=== PATIENT | female | born 1960 | race Caucasian/White ===

== ENCOUNTER 2018-01-01 12:21 | Emergency (ER) | payer MEDICAID ==
[~2018-01-01] VITALS: Ht 170.1 cm; Wt 90.7 kg
[~2018-01-01 12:21] MED LIST: AMOXICILLIN500 MG PO; ATARAX25 MG PO; NKHM PO; PREDNISONE20 MG PO; ULTRAM50 MG PO
[2018-01-01 14:05] LABS: BASO % 0.6 % (0.0-1.0); EOS % 0.7 % (1.0-4.0); HEMATOCRIT 42.4 % (37.0-47.0); HEMOGLOBIN 14.8 g/dl (12.0-16.0); LYMPH # 1.4 10*3/uL (1.3-4.4); LYMPH % 26.5 % (27.0-41.0); MEAN CELL VOLUME 90.8 fl (81.0-99.0); MEAN CORPUSCULAR HGB 31.7 pg (27.0-31.0); MEAN CORPUSCULAR HGB CONC 34.9 g/dl (33.0-37.0); MEAN PLATELET VOLUME 10.4 fl (9.6-12.3); MONO # 0.2 10*3/uL (0.1-1.0); MONO % 4.2 % (3.0-9.0); NEUT # 3.7 10*3/uL (2.3-7.9); NEUT % 67.6 % (47.0-73.0); PLATELET COUNT AUTOMATED 117 10*3/uL (130-400); RED BLOOD COUNT 4.67 10*6/uL (4.10-5.10); RED CELL DISTRI WIDTH 12.3 % (0-14.5); WHITE BLOOD COUNT 5.4 10*3/uL (4.8-10.8)
[2018-01-01 14:17] LABS: INTERNATIONAL NORM RATIO 0.9 (2.0-3.5)
[2018-01-01 14:27] LABS: ALBUMIN 3.8 gm/dl (3.1-4.5); ALKALINE PHOSPHATASE 110 U/L (45-117); BUN 13 mg/dl (7-24); CHLORIDE 105 mmol/L (98-107); CREATININE 1.17 mg/dL (0.55-1.02); LIPASE 136 U/L (73-393); POTASSIUM 3.6 mmol/L (3.5-5.1); SGOT/AST 21 IU/L (3-35); SGPT/ALT 32 U/L (12-78); SODIUM 139 mmol/L (136-145); TOTAL PROTEIN 8.5 gm/dL (6.4-8.2)
[2018-01-01 15:30] VITALS: BP 110/75
== END 2018-01-01 16:10 | disposition home or self-care (01) ==
LOC: ED 12:21
PROVIDERS: Emergency Medicine
DX: R10.30 Lower abdominal pain, unspecified (principal); R19.7 Diarrhea, unspecified; Z79.899 Other long term (current) drug therapy

== ENCOUNTER → 2018-09-02 | Outpatient (CLI) | payer MEDICARE, MEDICAID ==
[~2018-09-02] MED LIST changes: +OLANZAPINE5 MG PO; +OMEPRAZOLE40 MG PO; +OXCARBAZEPINE300 M1 PO
== END | disposition home or self-care (01) ==
LOC: MAMMO 06:48
DX: Z12.31 Encounter for screening mammogram for malignant neoplasm of breast (principal); R92.8 Other abnormal and inconclusive findings on diagnostic imaging of breast

== ENCOUNTER 2018-12-03 07:14 | Emergency (ER) | payer MEDICARE, MEDICAID ==
[~2018-12-03] VITALS: Ht 167.6 cm; Wt 93.4 kg
--- NOTE | ~2018-12-03 | EKG ---
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
[2018-12-03 08:03] LABS: EOS # 0.1 10*3/uL (0.0-0.4); HEMATOCRIT 45.2 % (37.0-47.0); HEMOGLOBIN 15.1 g/dl (12.0-16.0); LYMPH # 1.5 10*3/uL (1.3-4.4); LYMPH % 17.7 % (27.0-41.0); MEAN CELL VOLUME 91.5 fl (81.0-99.0); MEAN CORPUSCULAR HGB 30.6 pg (27.0-31.0); MEAN CORPUSCULAR HGB CONC 33.4 g/dl (33.0-37.0); MEAN PLATELET VOLUME 10.2 fl (9.6-12.3); MONO # 0.4 10*3/uL (0.1-1.0); NEUT # 6.4 10*3/uL (2.3-7.9); NEUT % 75.8 % (47.0-73.0); PLATELET COUNT AUTOMATED 101 10*3/uL (130-400); RED BLOOD COUNT 4.94 10*6/uL (4.10-5.10); RED CELL DISTRI WIDTH 12.4 % (0-14.5); WHITE BLOOD COUNT 8.4 10*3/uL (4.8-10.8)
[2018-12-03 08:21] LABS: ALBUMIN 3.5 gm/dl (3.1-4.5); ALKALINE PHOSPHATASE 163 U/L (45-117); BUN 12 mg/dl (7-24); CHLORIDE 102 mmol/L (98-107); POTASSIUM 3.6 mmol/L (3.5-5.1); SGOT/AST 19 IU/L (3-35); SGPT/ALT 34 U/L (12-78); SODIUM 136 mmol/L (136-145); TOTAL PROTEIN 8.2 gm/dL (6.4-8.2)
[2018-12-03 08:25] LABS: TROPONIN I < 0.015 ng/ml (<0.045)
[2018-12-03 08:36] VITALS: BP 139/84
== END 2018-12-03 08:42 | disposition home or self-care (01) ==
LOC: ED 07:14
PROVIDERS: Emergency Medicine
DX: R41.82 Altered mental status, unspecified (principal); R55 Syncope and collapse; R53.83 Other fatigue; R68.2 Dry mouth, unspecified; Z79.899 Other long term (current) drug therapy

== ENCOUNTER → 2019-02-17 | Outpatient (CLI) | payer MEDICARE, MEDICAID | END | disposition home or self-care (01) | LOC: US 11:10 | DX: R60.0 Localized edema (principal) ==

== ENCOUNTER → 2019-07-16 | Outpatient (CLI) | payer MEDICARE, OTHER | END | disposition home or self-care (01) | LOC: RAD 09:40 | DX: R04.2 Hemoptysis (principal); E11.9 Type 2 diabetes mellitus without complications ==

== ENCOUNTER → 2020-11-29 | Outpatient (CLI) | payer MEDICARE, OTHER | END | disposition home or self-care (01) | LOC: CT 12:44 | PROVIDERS: ATTEND Family Medicine | DX: G31.9 Degenerative disease of nervous system, unspecified (principal); R55 Syncope and collapse ==

== ENCOUNTER → 2022-01-17 | Outpatient (CLI) | payer OTHER | END | disposition home or self-care (01) | LOC: MAMMO 13:44 | PROVIDERS: ATTEND Family Medicine | DX: Z12.31 Encounter for screening mammogram for malignant neoplasm of breast (principal) ==

== ENCOUNTER → 2023-02-28 | Outpatient (CLI) | payer OTHER ==
[2023-02-28 10:38] LABS: BASO % 0.7 % (0.0-1.0); EOS # 0.1 10*3/uL (0.0-0.4); EOS % 1.8 % (1.0-4.0); HEMATOCRIT 42.8 % (37.0-47.0); LYMPH # 1.6 10*3/uL (1.3-4.4); LYMPH % 27.4 % (27.0-41.0); MEAN CORPUSCULAR HGB 28.7 pg (27.0-31.0); MEAN CORPUSCULAR HGB CONC 30.8 g/dl (33.0-37.0); MEAN PLATELET VOLUME 11.1 fl (9.6-12.3); MONO # 0.4 10*3/uL (0.1-1.0); MONO % 6.2 % (3.0-9.0); NEUT # 3.7 10*3/uL (2.3-7.9); NEUT % 62.2 % (47.0-73.0); PLATELET COUNT AUTOMATED 125 10*3/uL (130-400); RED CELL DISTRI WIDTH 13.2 % (0-14.5)
[2023-02-28 11:14] LABS: ALKALINE PHOSPHATASE 145 U/L (46-116); BUN 8 mg/dl (9-23); CHLORIDE 106 mmol/L (98-107); POTASSIUM 3.4 mmol/L (3.4-5.1); SGPT/ALT 32 U/L (10-49); TOTAL PROTEIN 7.3 gm/dL (6.0-8.0)
== END | disposition home or self-care (01) ==
LOC: LAB 09:55
PROVIDERS: ATTEND Internal Medicine Hematology & Oncology
DX: Z12.31 Encounter for screening mammogram for malignant neoplasm of breast (principal); I26.99 Other pulmonary embolism without acute cor pulmonale; I82.403 Acute embolism and thrombosis of unspecified deep veins of lower extremity, bilateral

== ENCOUNTER → 2023-03-11 | Outpatient (CLI) | payer OTHER | END | disposition home or self-care (01) | LOC: MAMMO 14:15 | PROVIDERS: ATTEND Internal Medicine Hematology & Oncology | DX: Z12.31 Encounter for screening mammogram for malignant neoplasm of breast (principal) ==

== ENCOUNTER → 2023-04-09 | Outpatient (CLI) | payer OTHER ==
[~2023-04-09] MED LIST changes: +METFORMIN HCL1000 M2 PO; +XARE20MG PO
== END | disposition home or self-care (01) ==
LOC: RAD 10:54
PROVIDERS: ATTEND Specialist
DX: R05.3 Chronic cough (principal)

== ENCOUNTER → 2023-04-14 | Day surgery (SDC) | payer OTHER ==
[~2023-04-14] VITALS: Ht 167.6 cm; Wt 90.7 kg
[2023-04-14 07:16] VITALS: BP 99/66
[2023-04-14 07:52] VITALS: BP 97/70
[2023-04-14 08:07] VITALS: BP 112/65
[2023-04-14 08:22] VITALS: BP 111/67
[2023-04-14 09:46] VITALS: BP 97/70
== END ==
LOC: SDC 04-10 11:45
PROVIDERS: ATTEND Surgery
DX: R10.9 Unspecified abdominal pain (principal); K29.50 Unspecified chronic gastritis without bleeding; E11.9 Type 2 diabetes mellitus without complications; I25.10 Atherosclerotic heart disease of native coronary artery without angina pectoris; K21.9 Gastro-esophageal reflux disease without esophagitis; F41.9 Anxiety disorder, unspecified; F32.A Depression, unspecified; G43.909 Migraine, unspecified, not intractable, without status migrainosus; Z98.890 Other specified postprocedural states

== ENCOUNTER → 2023-04-30 | Outpatient (CLI) | payer OTHER | END | disposition home or self-care (01) | LOC: RAD/SH 01:39 | PROVIDERS: ATTEND Family Medicine | DX: K22.9 Disease of esophagus, unspecified (principal) ==

== ENCOUNTER → 2023-06-16 | Outpatient (CLI) | payer OTHER | END | disposition home or self-care (01) | LOC: NM 06-09 07:00 | PROVIDERS: ATTEND Student in an Organized Health Care Education/Training Program | DX: K31.89 Other diseases of stomach and duodenum (principal) ==

== ENCOUNTER → 2024-02-19 | Outpatient (CLI) | payer OTHER | END | disposition home or self-care (01) | LOC: CT 01:10 | PROVIDERS: ATTEND Internal Medicine Hematology & Oncology | DX: I26.99 Other pulmonary embolism without acute cor pulmonale (principal); I82.403 Acute embolism and thrombosis of unspecified deep veins of lower extremity, bilateral; R25.2 Cramp and spasm; Z12.31 Encounter for screening mammogram for malignant neoplasm of breast ==

== ENCOUNTER → 2024-03-23 | Outpatient (CLI) | payer OTHER | END | disposition home or self-care (01) | LOC: MAMMO 12:50 | PROVIDERS: ATTEND Internal Medicine Hematology & Oncology | DX: Z12.31 Encounter for screening mammogram for malignant neoplasm of breast (principal); R92.333 Mammographic heterogeneous density, bilateral breasts ==

== ENCOUNTER → 2024-08-27 | Outpatient (CLI) | payer OTHER | END | disposition home or self-care (01) | LOC: US 07:58 | PROVIDERS: ATTEND Family Medicine | DX: K76.0 Fatty (change of) liver, not elsewhere classified (principal); R74.8 Abnormal levels of other serum enzymes ==

== ENCOUNTER → 2024-09-22 | Outpatient (CLI) | payer OTHER ==
[2024-09-23 08:10] LABS: HBsAG SCREEN Negative (Negative); HCV Ab Non Reactive (Non Reactive); HEP B CORE Ab, IgM Negative (Negative)
== END | disposition home or self-care (01) ==
LOC: LAB 14:51
PROVIDERS: Student in an Organized Health Care Education/Training Program; ATTEND Internal Medicine
DX: R74.8 Abnormal levels of other serum enzymes (principal)

== ENCOUNTER 2025-01-28 00:06 | Inpatient (IN) | payer OTHER ==
[2025-01-28] VITALS (8 sets, daily range): BP systolic 98–137; BP diastolic 67–91
[~2025-01-28] VITALS: Ht 175.2 cm; Wt 88.5 kg
[2025-01-28 00:40] LABS: BASO % 0.3 % (0.0-1.0); EOS # 0.1 10*3/uL (0.0-0.4); EOS % 0.8 % (1.0-4.0); HEMATOCRIT 43.6 % (37.0-47.0); MEAN CELL VOLUME 89.5 fl (81.0-99.0); MEAN CORPUSCULAR HGB 28.7 pg (27.0-31.0); MEAN CORPUSCULAR HGB CONC 32.1 g/dl (33.0-37.0); MEAN PLATELET VOLUME 10.9 fl (9.6-12.3); MONO # 0.5 10*3/uL (0.1-1.0); MONO % 8.3 % (3.0-9.0); NEUT # 4.4 10*3/uL (2.3-7.9); NEUT % 74.3 % (47.0-73.0); PLATELET COUNT AUTOMATED 92 10*3/uL (130-400); RED BLOOD COUNT 4.87 10*6/uL (4.10-5.10); RED CELL DISTRI WIDTH 14.9 % (0-14.5)
[2025-01-28 00:58] LABS: POTASSIUM 3.5 mmol/L (3.4-5.1)
[2025-01-28] MEDS ORDERED: SODIUM CHLORIDE 0.9% 1,000 ML IV ONE ×3 (01:15→09:40)
[2025-01-28] MEDS ORDERED: Ondansetron Hydrochloride 4 MG/2 ML VIAL IV ONE (01:15)
[2025-01-28 03:01] LABS: BILIRUBIN Negative (Negative); BLOOD 2+ (Negative); CLARITY Cloudy (Clear); COLOR Yellow (Yellow); GLUCOSE 3+ (Negative); KETONE 1+ (Negative); LEUKO ESTERASE 2+ (Negative); NITRITE Negative (Negative); PH 5.5 (4.5-8.0); SPECIFIC GRAVITY >= 1.030 (1.001-1.030); UROBILINOGEN 0.2 E.U./dl (0.0-1.0)
[2025-01-28 03:16] LABS: BACTERIA 3+; RBC 16-20 rbc/hpf (0-2); WBC TNTC wbc/hpf (0-5)
[2025-01-28] MEDS ORDERED: cefTRIAXone Sodium 1 GM/10 ML SYR IV ONE (03:20)
[2025-01-28] MEDS ORDERED: MAGNESIUM OXIDE 400 MG TAB PO ONE (03:20)
[2025-01-28] MEDS ORDERED: Magnesium Hydroxide 30 ML UDC PO PRN (04:30)
[2025-01-28] MEDS ORDERED: ACETAMINOPHEN 650 MG SUPP R PRN (04:30)
[2025-01-28] MEDS ORDERED: BISACODYL 5 MG TAB PO PRN (04:30)
[2025-01-28] MEDS ORDERED: BISACODYL 10 MG SUPP R PRN (04:30)
[2025-01-28] MEDS ORDERED: ACETAMINOPHEN 325 MG TAB PO PRN (04:30)
[2025-01-28] MEDS ORDERED: LINZESS145 MC1 PO (05:13)
[2025-01-28] MEDS ORDERED: LIPITOR40 MG PO (05:13)
[2025-01-28] MEDS ORDERED: JARDIANCE25 MG PO (05:14)
[2025-01-28] MEDS ORDERED: PEPCID40 MG PO (05:14)
[2025-01-28] MEDS ORDERED: TRINTELLIX20 MG PO (05:14)
[2025-01-28] MEDS ORDERED: OS-CAL 500-VIT1 EAC1 PO (05:14)
[2025-01-28] MEDS ORDERED: REXULTI1 MG PO (05:15)
[2025-01-28] MEDS ORDERED: GOOD NEIGHBOR L10 MG PO (05:16)
[2025-01-28] MEDS ORDERED: DOXEPIN HCL50 MG PO (05:16)
[2025-01-28 05:28] LABS: FREE T4 0.98 ng/dl (0.89-1.76); POTASSIUM 3.9 mmol/L (3.4-5.1); TOTAL PROTEIN 7.4 gm/dL (6.0-8.0)
[2025-01-28 05:42] LABS: VITAMIN D, 25-HYDROXY 92.4 ng/mL (30-100)
[2025-01-28] MEDS ORDERED: SODIUM CHLORIDE 0.9% 100 ML BAG IV ONE (05:50)
[2025-01-28] MEDS ORDERED: IOHEXOL 350 MG/ML 100 ML VIAL IV ONE ×2 (05:50→06:21)
[2025-01-28 06:18] LABS: BASO % 0.2 % (0.0-1.0); EOS % 0.3 % (1.0-4.0); HEMATOCRIT 41.7 % (37.0-47.0); MEAN CORPUSCULAR HGB 28.8 pg (27.0-31.0); MEAN CORPUSCULAR HGB CONC 31.7 g/dl (33.0-37.0); MEAN PLATELET VOLUME 11.3 fl (9.6-12.3); MONO # 0.4 10*3/uL (0.1-1.0); MONO % 7.4 % (3.0-9.0); NEUT # 4.4 10*3/uL (2.3-7.9); NEUT % 76.3 % (47.0-73.0); PLATELET COUNT AUTOMATED 90 10*3/uL (130-400); RED BLOOD COUNT 4.58 10*6/uL (4.10-5.10); RED CELL DISTRI WIDTH 15.1 % (0-14.5); WHITE BLOOD COUNT 5.8 10*3/uL (4.8-10.8)
[2025-01-28] MEDS ORDERED: SODIUM CHLORIDE 0.9% 100 ML IV ONE (06:21)
[2025-01-28] MEDS ORDERED: DEXTROSE 10 % IN WATER 250 ML IV PRN (07:05)
[2025-01-28] MEDS ORDERED: INSULIN LISPRO 1 UNIT/0.01 ML SQ SCH (07:30)
[2025-01-28] MEDS ORDERED: methylPREDNISolone sod succ 40 MG VIAL IV SCH (10:00)
[2025-01-28] MEDS ORDERED: CALCIUM CARBONATE/VITAMIN D3 500 MG/200 IU TABLET PO SCH (10:00)
[2025-01-28] MEDS ORDERED: BREXPIPRAZOLE 1 MG TABLET PO SCH (10:00)
[2025-01-28] MEDS ORDERED: Metoprolol Tartrate 25 MG TAB PO SCH (10:00)
[2025-01-28] MEDS ORDERED: VORTIOXETINE HYDROBROMIDE 20 MG TAB PO SCH (10:00)
[2025-01-28] MEDS ORDERED: cefTRIAXone Sodium 1 GM in SYRINGE INFUSION 10 ML IV SCH (10:00)
[2025-01-28] MEDS ORDERED: ATORVASTATIN CALCIUM 40 MG TABLET PO SCH (10:00)
[2025-01-28] MEDS ORDERED: AZITHROMYCIN 250 ML IV SCH (10:00)
[2025-01-28] MEDS ORDERED: EMPAGLIFLOZIN 25 MG TABLET PO SCH (10:00)
[2025-01-28] MEDS ORDERED: GUAIFENESIN 600 MG TAB ER PO SCH (10:00)
[2025-01-28] MEDS ORDERED: RIVAROXABAN 10 MG TAB PO SCH (10:00)
[2025-01-28] MEDS ORDERED: Doxepin Hydrochloride 25 MG CAP PO SCH (22:00)
[2025-01-29] VITALS: BP 180/80
[2025-01-29 06:39] LABS: BASO % 0.3 % (0.0-1.0); EOS # 0.1 10*3/uL (0.0-0.4); EOS % 0.7 % (1.0-4.0); MEAN CELL VOLUME 92.7 fl (81.0-99.0); MEAN CORPUSCULAR HGB 28.7 pg (27.0-31.0); MEAN PLATELET VOLUME 11.6 fl (9.6-12.3); MONO # 0.7 10*3/uL (0.1-1.0); MONO % 9.3 % (3.0-9.0); NEUT # 4.7 10*3/uL (2.3-7.9); NEUT % 66.3 % (47.0-73.0); PLATELET COUNT AUTOMATED 93 10*3/uL (130-400); RED BLOOD COUNT 4.53 10*6/uL (4.10-5.10); RED CELL DISTRI WIDTH 15.5 % (0-14.5)
[2025-01-29 07:04] LABS: POTASSIUM 3.6 mmol/L (3.4-5.1); TOTAL PROTEIN 7.4 gm/dL (6.0-8.0)
[2025-01-29 08:00] VITALS: BP 119/76
[2025-01-29 11:45] VITALS: BP 119/76
[2025-01-29 16:00] VITALS: BP 111/69
[2025-01-29] MEDS ORDERED: Ondansetron Hydrochloride 4 MG/2 ML VIAL IV PRN (19:50)
[2025-01-29] MEDS ORDERED: MORPHINE Sulfate 2 MG/ML SYR IV PRN (19:50)
[2025-01-29 20:00] VITALS: BP 118/63
[2025-01-30] VITALS: BP 107/75
[2025-01-30 06:13] LABS: BASO % 0.3 % (0.0-1.0); EOS # 0.1 10*3/uL (0.0-0.4); EOS % 1.3 % (1.0-4.0); HEMATOCRIT 40.5 % (37.0-47.0); MEAN CELL VOLUME 93.5 fl (81.0-99.0); MEAN CORPUSCULAR HGB 28.6 pg (27.0-31.0); MEAN CORPUSCULAR HGB CONC 30.6 g/dl (33.0-37.0); MEAN PLATELET VOLUME 10.6 fl (9.6-12.3); MONO # 0.4 10*3/uL (0.1-1.0); MONO % 6.3 % (3.0-9.0); NEUT % 60.2 % (47.0-73.0); PLATELET COUNT AUTOMATED 96 10*3/uL (130-400); RED BLOOD COUNT 4.33 10*6/uL (4.10-5.10); RED CELL DISTRI WIDTH 15.3 % (0-14.5); WHITE BLOOD COUNT 6.7 10*3/uL (4.8-10.8)
[2025-01-30 06:33] LABS: ALKALINE PHOSPHATASE 159 U/L (46-116); BUN 13 mg/dl (9-23); CHLORIDE 108 mmol/L (98-107); POTASSIUM 3.7 mmol/L (3.4-5.1); SGPT/ALT 35 U/L (5-49)
[2025-01-30 07:50] VITALS: BP 100/56
[2025-01-30 12:00] VITALS: BP 113/73
[2025-01-30] MEDS ORDERED: MUCUS RELIEF E600 MG PO (12:13)
[2025-01-30] MEDS ORDERED: CEPHALEXIN500 M1 PO (12:13)
[2025-01-30] MEDS ORDERED: AVPAK AZITHROM250 M1 PO (12:13)
[2025-01-30] MEDS ORDERED: LOPRESSOR25 MG PO (12:13)
[2025-01-30 16:00] VITALS: BP 112/78
== END 2025-01-30 16:35 | disposition home health service (06) | DRG 202 ==
LOC: ED 00:06 → EDHOLD 03:36 → 5E 03:36
PROVIDERS: Internal Medicine; ADMIT Internal Medicine; ATTEND Internal Medicine
DX: J20.9 Acute bronchitis, unspecified (principal); G93.41 Metabolic encephalopathy; N30.01 Acute cystitis with hematuria; E83.42 Hypomagnesemia; D69.6 Thrombocytopenia, unspecified; E11.65 Type 2 diabetes mellitus with hyperglycemia; E11.22 Type 2 diabetes mellitus with diabetic chronic kidney disease; N18.31 Chronic kidney disease, stage 3a; K58.2 Mixed irritable bowel syndrome; K21.9 Gastro-esophageal reflux disease without esophagitis; Z20.822 Contact with and (suspected) exposure to COVID-19; B96.20 Unspecified Escherichia coli [E. coli] as the cause of diseases classified elsewhere; Z86.73 Personal history of transient ischemic attack (TIA), and cerebral infarction without residual deficits; Z86.718 Personal history of other venous thrombosis and embolism; Z86.711 Personal history of pulmonary embolism; Z80.3 Family history of malignant neoplasm of breast; Z80.0 Family history of malignant neoplasm of digestive organs; Z79.899 Other long term (current) drug therapy

== ENCOUNTER → 2025-04-12 | Outpatient (CLI) | payer OTHER ==
[~2025-04-12] MED LIST changes: +AVPAK AZITHROM250 M1 PO; +CEPHALEXIN500 M1 PO; +DOXEPIN HCL50 MG PO; +GOOD NEIGHBOR L10 MG PO; +JARDIANCE25 MG PO; +LINZESS145 MC1 PO; +LIPITOR40 MG PO; +LOPRESSOR25 MG PO; +MUCUS RELIEF E600 MG PO; +OS-CAL 500-VIT1 EAC1 PO; +PEPCID40 MG PO; +REXULTI1 MG PO; +TRINTELLIX20 MG PO
[2025-04-12 11:45] LABS: VITAMIN D, 25-HYDROXY 85.8 ng/mL (30-100)
== END | disposition home or self-care (01) ==
LOC: LAB 10:28
PROVIDERS: Student in an Organized Health Care Education/Training Program; ATTEND Family Medicine
DX: R53.83 Other fatigue (principal)

== ENCOUNTER → 2025-07-20 | Outpatient (CLI) | payer OTHER ==
[~2025-07-20] MED LIST changes: +MACROBID100 M1 PO
== END | disposition home or self-care (01) ==
LOC: US 12:00
PROVIDERS: ATTEND Physician Assistant Medical
DX: I82.403 Acute embolism and thrombosis of unspecified deep veins of lower extremity, bilateral (principal); Z12.31 Encounter for screening mammogram for malignant neoplasm of breast; I26.99 Other pulmonary embolism without acute cor pulmonale; R25.2 Cramp and spasm; M79.89 Other specified soft tissue disorders

== ENCOUNTER → 2025-07-27 | Outpatient (CLI) | payer OTHER ==
[2025-07-27 13:19] LABS: BASO # 0.0 10*3/uL (0.0-0.1); BASO % 0.0 % (0.0-1.0); EOS # 0.1 10*3/uL (0.0-0.4); EOS % 1.1 % (1.0-4.0); MEAN CELL VOLUME 94.1 fl (81.0-99.0); MEAN CORPUSCULAR HGB 30.2 pg (27.0-31.0); MEAN PLATELET VOLUME 10.3 fl (9.6-12.3); MONO # 0.3 10*3/uL (0.1-1.0); MONO % 5.3 % (3.0-9.0); NEUT # 3.3 10*3/uL (2.3-7.9); NEUT % 69.4 % (47.0-73.0); NUCLEATED RED BLOOD CELL 0.0 % (0.0-0.0); NUCLEATED RED BLOOD CELL 0.0 10*3/uL (0.0-0.0); PLATELET COUNT AUTOMATED 116 10*3/uL (130-400); RED CELL DISTRI WIDTH 13.6 % (0-14.5)
[2025-07-27 13:39] LABS: BUN 11 mg/dl (9-23); SGPT/ALT 23 U/L (5-49)
== END | disposition home or self-care (01) ==
LOC: LAB 13:03 → MAMMO 13:30
PROVIDERS: ATTEND Physician Assistant Medical
DX: Z12.31 Encounter for screening mammogram for malignant neoplasm of breast (principal); I82.403 Acute embolism and thrombosis of unspecified deep veins of lower extremity, bilateral; I26.99 Other pulmonary embolism without acute cor pulmonale; M79.89 Other specified soft tissue disorders; R25.2 Cramp and spasm

== ENCOUNTER 2025-08-01 07:34 | Inpatient (IN) | payer OTHER ==
[~2025-08-01] VITALS: Ht 167.6 cm; Wt 78.0 kg
[~2025-08-01 07:34] MED LIST changes: +CIPRO500 MG PO; +LURASIDONE HCL20 MG PO; +METOCLOPRAMIDE5 MG PO; +Ondansetron4 MG PO; +ROSUVASTATIN CA40 MG PO; +SENNA8.6 MG PO; +TRULICITY0.75 MG/0. SC
[2025-08-01 07:59] VITALS: BP 138/66
[2025-08-01] MEDS ORDERED: IOHEXOL 300 MG/ML 100 ML VIAL IV ONE (08:15)
[2025-08-01 08:25] LABS: BASO # 0.0 10*3/uL (0.0-0.1); BASO % 0.0 % (0.0-1.0); EOS # 0.0 10*3/uL (0.0-0.4); EOS % 0.1 % (1.0-4.0); MEAN CELL VOLUME 93.6 fl (81.0-99.0); MEAN CORPUSCULAR HGB 30.1 pg (27.0-31.0); MEAN PLATELET VOLUME 10.6 fl (9.6-12.3); MONO # 0.5 10*3/uL (0.1-1.0); MONO % 7.2 % (3.0-9.0); NEUT # 5.1 10*3/uL (2.3-7.9); NEUT % 73.7 % (47.0-73.0); NUCLEATED RED BLOOD CELL 0.0 % (0.0-0.0); NUCLEATED RED BLOOD CELL 0.0 10*3/uL (0.0-0.0); PLATELET COUNT AUTOMATED 124 10*3/uL (130-400); RED CELL DISTRI WIDTH 13.6 % (0-14.5)
[2025-08-01] MEDS ORDERED: IOHEXOL 300 MG/ML 100 ML VIAL ONE (08:36)
[2025-08-01 08:44] LABS: BUN 11.0 mg/dl (9-23); SGPT/ALT 13.0 U/L (5-49)
[2025-08-01 08:56] LABS: BILIRUBIN Negative (Negative); BLOOD 2+ (Negative); CLARITY Turbid (Clear); COLOR Yellow (Yellow); KETONE Trace (Negative); LEUKO ESTERASE 3+ (Negative); NITRITE Negative (Negative); SPECIFIC GRAVITY 1.020 (1.001-1.030); UROBILINOGEN 0.2 E.U./dl (0.0-1.0)
[2025-08-01 08:58] LABS: PH 8.5 (4.5-8.0)
[2025-08-01 09:10] LABS: BACTERIA 4+; RBC TNTC rbc/hpf (0-2); WBC TNTC wbc/hpf (0-5)
[2025-08-01] MEDS ORDERED: Lactated Ringer's Solution 1,000 ML IV SCH (11:55)
[2025-08-01] MEDS ORDERED: BISACODYL 10 MG SUPP R PRN (13:00)
[2025-08-01] MEDS ORDERED: ACETAMINOPHEN 325 MG TAB PO PRN (13:00)
[2025-08-01] MEDS ORDERED: Ondansetron Hydrochloride 4 MG/2 ML VIAL IV PRN (13:00)
[2025-08-01] MEDS ORDERED: BISACODYL 5 MG TAB PO PRN (13:00)
[2025-08-01] MEDS ORDERED: DEXTROSE 50% 25 GM/50 ML VIAL IV PRN (14:15)
[2025-08-01 14:30] VITALS: BP 120/80
[2025-08-01] MEDS ORDERED: Lactated Ringer's Solution 1,000 ML IV ONE (15:10)
[2025-08-01 16:00] VITALS: BP 120/80
[2025-08-01] MEDS ORDERED: INSULIN LISPRO 1 UNIT/0.01 ML SQ SCH (16:30)
[2025-08-01] MEDS ORDERED: Polyethylene Glycol 3350 17 GM PACKET PO SCH (18:00)
[2025-08-01 20:00] VITALS: BP 138/84
[2025-08-02] VITALS: BP 142/92
[2025-08-02 05:09] LABS: BUN 11.0 mg/dl (9-23); FREE T4 1.25 ng/dl (0.89-1.76); LDL CHOLESTEROL 85.0 mg/dL (9-159); SGPT/ALT 13.0 U/L (5-49)
[2025-08-02 06:21] LABS: BASO # 0.0 10*3/uL (0.0-0.1); BASO % 0.0 % (0.0-1.0); EOS # 0.0 10*3/uL (0.0-0.4); EOS % 0.4 % (1.0-4.0); MEAN CELL VOLUME 93.9 fl (81.0-99.0); MEAN CORPUSCULAR HGB 29.7 pg (27.0-31.0); MEAN PLATELET VOLUME 10.9 fl (9.6-12.3); MONO # 0.6 10*3/uL (0.1-1.0); MONO % 7.1 % (3.0-9.0); NEUT # 5.8 10*3/uL (2.3-7.9); NEUT % 73.0 % (47.0-73.0); NUCLEATED RED BLOOD CELL 0.0 % (0.0-0.0); NUCLEATED RED BLOOD CELL 0.0 10*3/uL (0.0-0.0); PLATELET COUNT AUTOMATED 154 10*3/uL (130-400); RED CELL DISTRI WIDTH 14.4 % (0-14.5)
[2025-08-02 06:25] LABS: ACT PARTIAL THROMBO TIME 25.1 SECONDS (20.0-32.1)
[2025-08-02 07:48] LABS: VITAMIN D, 25-HYDROXY 72.9 ng/mL (30-100)
[2025-08-02 08:00] VITALS: BP 131/91
[2025-08-02] MEDS ORDERED: LINACLOTIDE 145 MCG CAP PO SCH (10:00)
[2025-08-02] MEDS ORDERED: FAMOTIDINE 20 MG TAB PO SCH (10:00)
[2025-08-02] MEDS ORDERED: LORATADINE 10 MG TAB PO SCH (10:00)
[2025-08-02] MEDS ORDERED: RIVAROXABAN 10 MG TAB PO SCH (10:00)
[2025-08-02] MEDS ORDERED: LURASIDONE HYDROCHLORIDE 20 MG TAB PO SCH (10:00)
[2025-08-02 11:54] VITALS: BP 146/83
[2025-08-02 16:00] VITALS: BP 97/57
[2025-08-02 20:00] VITALS: BP 119/61
[2025-08-03] VITALS: BP 128/79
[2025-08-03 05:23] LABS: BUN 12.0 mg/dl (9-23)
[2025-08-03 06:33] LABS: BASO # 0.0 10*3/uL (0.0-0.1); BASO % 0.2 % (0.0-1.0); EOS # 0.1 10*3/uL (0.0-0.4); EOS % 1.1 % (1.0-4.0); MEAN CELL VOLUME 96.5 fl (81.0-99.0); MEAN CORPUSCULAR HGB 30.4 pg (27.0-31.0); MEAN PLATELET VOLUME 11.0 fl (9.6-12.3); MONO # 0.6 10*3/uL (0.1-1.0); MONO % 9.0 % (3.0-9.0); NEUT # 4.2 10*3/uL (2.3-7.9); NEUT % 64.2 % (47.0-73.0); NUCLEATED RED BLOOD CELL 0.0 % (0.0-0.0); NUCLEATED RED BLOOD CELL 0.0 10*3/uL (0.0-0.0); PLATELET COUNT AUTOMATED 133 10*3/uL (130-400); RED CELL DISTRI WIDTH 13.9 % (0-14.5)
[2025-08-03 08:00] VITALS: BP 131/82
[2025-08-03 12:00] VITALS: BP 104/68
[2025-08-03 20:00] VITALS: BP 122/68
[2025-08-04] VITALS: BP 142/72
[2025-08-04 04:33] LABS: BASO # 0.0 10*3/uL (0.0-0.1); BASO % 0.2 % (0.0-1.0); EOS # 0.0 10*3/uL (0.0-0.4); EOS % 0.5 % (1.0-4.0); MEAN CELL VOLUME 94.5 fl (81.0-99.0); MEAN CORPUSCULAR HGB 30.3 pg (27.0-31.0); MEAN PLATELET VOLUME 10.2 fl (9.6-12.3); MONO # 0.4 10*3/uL (0.1-1.0); MONO % 6.8 % (3.0-9.0); NEUT # 3.1 10*3/uL (2.3-7.9); NEUT % 53.6 % (47.0-73.0); NUCLEATED RED BLOOD CELL 0.0 % (0.0-0.0); NUCLEATED RED BLOOD CELL 0.0 10*3/uL (0.0-0.0); PLATELET COUNT AUTOMATED 110 10*3/uL (130-400); RED CELL DISTRI WIDTH 13.7 % (0-14.5)
[2025-08-04 04:50] LABS: BUN 11 mg/dl (9-23)
[2025-08-04 08:00] VITALS: BP 94/56
[2025-08-04] MEDS ORDERED: PREMIERPRO RX ME1 GM IV (11:47)
[2025-08-04 12:00] VITALS: BP 109/74
[2025-08-04] MEDS ORDERED: ERTAPENEM1 GM IV (13:11)
[2025-08-04 16:00] VITALS: BP 107/64
[2025-08-04 20:00] VITALS: BP 123/72
[2025-08-05] VITALS: BP 115/60
[2025-08-05 05:32] LABS: BUN 17 mg/dl (9-23)
[2025-08-05 06:04] LABS: BASO # 0.0 10*3/uL (0.0-0.1); BASO % 0.0 % (0.0-1.0); EOS # 0.0 10*3/uL (0.0-0.4); EOS % 0.7 % (1.0-4.0); MEAN CELL VOLUME 93.4 fl (81.0-99.0); MEAN CORPUSCULAR HGB 30.3 pg (27.0-31.0); MEAN PLATELET VOLUME 11.4 fl (9.6-12.3); MONO # 0.4 10*3/uL (0.1-1.0); MONO % 6.9 % (3.0-9.0); NEUT # 3.1 10*3/uL (2.3-7.9); NEUT % 52.6 % (47.0-73.0); NUCLEATED RED BLOOD CELL 0.0 % (0.0-0.0); NUCLEATED RED BLOOD CELL 0.0 10*3/uL (0.0-0.0); PLATELET COUNT AUTOMATED 108 10*3/uL (130-400); RED CELL DISTRI WIDTH 13.6 % (0-14.5)
[2025-08-05 08:12] VITALS: BP 114/62
[2025-08-05] MEDS ORDERED: QUETIAPINE FUMA25 MG PO (10:45)
[2025-08-05 12:00] VITALS: BP 112/67
== END 2025-08-05 11:43 | disposition home health service (06) | DRG 689 ==
LOC: ED 07:34 → 4E 12:27 → EDHOLD 12:27 → 4E 14:14
PROVIDERS: Emergency Medicine; Student in an Organized Health Care Education/Training Program; ADMIT Internal Medicine; ATTEND Internal Medicine
PROC: 05H933Z Insertion of Infusion Device into Right Brachial Vein, Percutaneous Approach (ICD-10-PCS; principal; 2025-08-04)
PROC: B54MZZA Ultrasonography of Right Upper Extremity Veins, Guidance (ICD-10-PCS; 2025-08-04)
DX: N30.01 Acute cystitis with hematuria (principal); G93.41 Metabolic encephalopathy; F31.10 Bipolar disorder, current episode manic without psychotic features, unspecified; E87.20 Acidosis, unspecified; N18.31 Chronic kidney disease, stage 3a; K59.00 Constipation, unspecified; E11.65 Type 2 diabetes mellitus with hyperglycemia; K21.9 Gastro-esophageal reflux disease without esophagitis; F51.04 Psychophysiologic insomnia; E11.22 Type 2 diabetes mellitus with diabetic chronic kidney disease; G89.29 Other chronic pain; K08.89 Other specified disorders of teeth and supporting structures; B96.20 Unspecified Escherichia coli [E. coli] as the cause of diseases classified elsewhere; Z86.718 Personal history of other venous thrombosis and embolism; Z78.9 Other specified health status; Z86.711 Personal history of pulmonary embolism; Z86.73 Personal history of transient ischemic attack (TIA), and cerebral infarction without residual deficits; Z80.3 Family history of malignant neoplasm of breast; Z80.0 Family history of malignant neoplasm of digestive organs; Z79.899 Other long term (current) drug therapy